=== PATIENT | male | born 1975 | race Caucasian/White ===

== ENCOUNTER → 2018-02-10 | Outpatient (CLI) | payer BC ==
--- NOTE | 2018-02-10 13:35 | SFUN ---
SLEEP CENTER FOLLOW UP NOTE DATE OF SERVICE: 02/10/2018 A 42-year-old gentleman had been followed in sleep center for treatment of severe obstructive sleep apnea-hypopnea syndrome. The patient continued to use his CPAP equipment every night for the whole night. No snoring with the machine. No significant excessive daytime sleepiness. [place] Sleepiness Scale is 4. Recently, he developed some problems with the machine. No water humidifier in the morning although he put the amount of water in the chamber to the maximal level. MEDICATIONS: None. I checked patient's CPAP unit. CPAP pressure is 15 cm of water. Usage is 29 out of 30 nights more than 4 hours, average 6 hours 12 minutes. No leak at all. Apnea-hypopnea index reading only 1.9, which is perfect. PHYSICAL EXAMINATION: During physical exam, patient in no distress. VITAL SIGNS: BP 116/71, HR 73, RR 16, weight 294, which is about 9 pounds less than during the previous visit. Height 5 feet 9-1/2 inches. BMI 42.7. Temperature 97.4, oxygen saturation at room air 100%. HEENT: PERRLA, EOMI. Oropharynx extremely low position of soft palate. NECK: Supple, no JVD. Thyroid is not palpable. LUNGS: Clear to percussion and to auscultation. Good air exchange. No wheezing or rhonchi. HEART: S1, S2 regular. No murmurs, gallops, or rubs. ABDOMEN: Obese. EXTREMITIES No clubbing or cyanosis. PATIENT SCHEDULER: Awake, alert, and oriented X3. Cranial nerves 2 to 7 intact. There is no fasciculation or atrophy. noted. No focal deficits observed. IMPRESSION: 1. Severe obstructive sleep apnea-hypopnea syndrome; apnea-hypopnea index 77, on control with CPAP at 15 cm of water. Patient demonstrated 100% compliance with treatment benefitting from treatment. 2. Obesity. 3. History of hyperlipidemia. PLAN: 1. Patient will continue to use CPAP equipment every night for the whole night. 2. I am going to replace CPAP unit. It is 5 years old and there is some problem with heated humidity. 3. Sleep hygiene with regular time in bed for at least 8 hours. 4. No driving if feeling sleepiness. 5. Prescription for all necessary CPAP supplies. Sincerely, Mayur Simental MD, PhD, FAASM Diplomat of [employer] Crew Attendant of [facility] [place] MMKALEB / LUIN: [id number] /
== END | disposition home or self-care (01) ==
LOC: SLEEP 10:57
PROVIDERS: ATTEND Internal Medicine
DX: G47.33 Obstructive sleep apnea (adult) (pediatric) (principal); E66.9 Obesity, unspecified; E78.5 Hyperlipidemia, unspecified; Z68.41 Body mass index [BMI] 40.0-44.9, adult; Z99.89 Dependence on other enabling machines and devices

== ENCOUNTER → 2019-05-05 | Outpatient (CLI) | payer BC ==
--- NOTE | 2019-05-05 17:35 | PN ---
PROGRESS NOTE DATE OF SERVICE: 05/05/2019 43-year-old gentleman followed in the Sleep Center for treatment of obstructive sleep apnea-hypopnea syndrome. Patient continued to use his CPAP equipment every night for the whole night without problems related to mask fitting, pressure, humidification. [place] Sleepiness Scale today is 5. I checked CPAP unit. CPAP pressure is 15 cm of water. Usage is 29/30 nights for more than 4 hours with average usage 6.3 hours. Leak is 1% of the time. Apnea-hypopnea index 0.32, which is totally normal. No any periodic breathing 0%. PHYSICAL EXAM: gentleman without distress. BP 124/73, HR 88, RR 16, height 5 feet 9 inches, weight 305, body mass index 45, temperature 98.3, oxygen saturation at room air 94%. Oropharynx: Low position of soft palate, Mallampati 4. Neck Supple, no JVD. Thyroid is not palpable. LUNGS Clear to percussion and to auscultation. Good air exchange. No wheezing or rhonchi. HEART S1, S2 regular. No murmurs, gallops, or rubs. ABDOMEN: Obese. Soft and nontender. Bowel sounds are present. No organomegaly appreciated. EXTREMITIES No clubbing or cyanosis. GROUP HOME WORKER Awake, alert, and oriented X3. Cranial nerves 2 to 7 intact. There is no fasciculation or atrophy. noted. No focal deficits observed. IMPRESSION: 1. Obstructive sleep apnea-hypopnea syndrome in severe range with apnea-hypopnea index 77. Patient demonstrated great compliance with treatment. Normalization of breathing on CPAP. 2. CPAP unit is old, more than 5 years old. Sometimes has problems. 3. Obesity. 4. History of hyperlipidemia. PLAN: 1. Patient will continue CPAP equipment every night for the whole night. 2. Losing weight. 3. Sleep hygiene with regular time in bed for at least 8 hours. 4. No driving if feeling any sleepiness. 5. Prescription for new CPAP supplies unit. 6. Precautions related to driving. 7. No driving if feeling sleepiness. 8. Decision-making. The patient's unit is old. Needs to be placed. No necessity to change pressure at the present time. Sincerely, Mayur Simental MD, PhD, FAASM Diplomat of [employer] Pump Installer of [facility] [place] MMODL / IJN: [id number] /
== END | disposition home or self-care (01) ==
LOC: SLEEP 14:39
PROVIDERS: ATTEND Internal Medicine
DX: G47.33 Obstructive sleep apnea (adult) (pediatric) (principal); Z99.89 Dependence on other enabling machines and devices; E66.9 Obesity, unspecified; E78.5 Hyperlipidemia, unspecified

== ENCOUNTER → 2019-07-14 | Outpatient (CLI) | payer BC ==
--- NOTE | 2019-07-14 16:02 | PN ---
PROGRESS NOTE DATE OF SERVICE: 07/14/2019 This patient is a 43-year-old gentleman who has been followed in Sleep Center for treatment of obstructive sleep apnea-hypopnea syndrome. Recently the patient received a new CPAP unit and he continues to use CPAP equipment every night for the whole night. No snoring with the machine. [place] Sleepiness Scale today is zero. I checked his CPAP unit. CPAP pressure is 15 cm of water. Usage is 100% of nights for more than 4 hours with average usage 6.1 hours per night. Leak is 20 L/minute, which is borderline. Apnea-hypopnea index is only 0.4, which is absolutely perfect. MEDICATIONS: None. PHYSICAL EXAMINATION: GENERAL: A pleasant patient in no distress. VITAL SIGNS: BP 127/78, HR 89, RR 16. Weight 307.8. Temperature 98.1, oxygen saturation at room air 95%. HEENT: PERRLA, EOMI. Evaluation of oropharynx showed tongue protrudes midline. Extremely low position of soft palate. Mallampati IV. NECK: Supple. No JVD. Thyroid is not palpable. LUNGS: Clear to percussion and to auscultation. Good air exchange. No wheezing or rhonchi. HEART: S1, S2 regular. No murmurs, gallops or rubs. ABDOMEN: Obese. EXTREMITIES: No clubbing or cyanosis. NETSUITE CONSULTANT: Awake, alert, and oriented X3. Cranial nerves 2 to 7 intact. There is no fasciculation or atrophy. noted. No focal deficits observed. IMPRESSION: 1. Obstructive sleep apnea-hypopnea syndrome, in severe range. Apnea-hypopnea index 77, under full control with CPAP at a pressure of 15 cm of water. Patient has demonstrated great compliance with treatment, benefitting from treatment. 2. Obesity. 3. History of hyperlipidemia. PLAN: 1. Patient will continue to use CPAP equipment every night for the whole night. 2. Losing weight. 3. I will maintain all necessary prescriptions for CPAP supplies, including mask, tube, filters. 4. Diet with low level of cholesterol. 5. No driving if feeling any sleepiness. 6. Follow-up visit in one year, or earlier if patient has any problems. 7. I will also teach the patient how to use his new CPAP unit, including adjustments of humidity and RAMP time. Sincerely, Mayur Simental MD, PhD, FAASM Diplomat of [employer] Kit Planner of [facility] [place] MMKALEB / LUIN: [id number] /
== END ==
LOC: SLEEP 14:52
PROVIDERS: ATTEND Internal Medicine
DX: G47.33 Obstructive sleep apnea (adult) (pediatric) (principal); E66.9 Obesity, unspecified; E78.5 Hyperlipidemia, unspecified; Z99.89 Dependence on other enabling machines and devices

== ENCOUNTER → 2021-10-10 | Outpatient (CLI) | payer BC ==
--- NOTE | 2021-10-10 16:14 | SFUN ---
SLEEP CENTER FOLLOW UP NOTE DATE OF SERVICE: 10/10/2021 INTERVAL HISTORY: A 46-year-old gentleman has been followed in Sleep Center for treatment of obstructive sleep apnea-hypopnea syndrome. I did not see patient since July 2019. Because of the COVID situation, patient was not able to come. Patient continued to use his CPAP equipment every night. Presently, he has some problem to get his supplies for the CPAP unit. [place] Sleepiness Scale is 3, which is normal. I checked CPAP unit. CPAP pressure is 15 cm of water. Usage is 30/30 nights. Average 7.1 hours per night. Leak is 13 L/minute, which is acceptable range. Apnea-hypopnea index is 0.5 which is totally normal. The patient is using a cleaning system for the CPAP unit. I discussed extensively with him the issues related to cleaning; necessity to keep chamber dry during the day and put distilled water in the evening. MEDICATIONS: None. PHYSICAL EXAMINATION: GENERAL: Patient in no distress. BP 157/76, HR 95, RR 16, height 5 feet 9 inches, weight 281.8, body mass index 41.4. Patient lost 26 pounds since previous visit. Temperature 97.2, oxygen saturation at room air 95%. Extremely low position of soft palate, Mallampati 4. NECK: Supple, no JVD. Thyroid is not palpable. LUNGS: Clear to percussion and to auscultation. Good air exchange. No wheezing or rhonchi. HEART: S1, S2 regular. No murmurs, gallops, or rubs. ABDOMEN: Obese. Soft and nontender. Bowel sounds are present. No organomegaly appreciated. EXTREMITIES: No clubbing or cyanosis. DOUGH CATCHER: Awake, alert, and oriented X3. Cranial nerves 2 to 7 intact. There is no fasciculation or atrophy. noted. No focal deficits observed. ABDOMEN: Obese. IMPRESSION: 1. Extremely severe obstructive sleep apnea-hypopnea syndrome apnea-hypopnea index 77. The patient demonstrated a practically 100% compliance with treatment benefitting from treatment, normal respiration on CPAP. 2. Obesity, BMI 41.4. 3. Hypertension in the office. 4. Hyperlipidemia. PLAN: 1. Prescription to replace CPAP mask. The patient is using full face mask immediately. 2. Preferably not using a cleaning system especially for the machine. He can continue to use it for the mask and tube. 3. Patient will continue to use PAP equipment every night for the whole night. 4. Sleep hygiene with regular time in bed for at least 7-1/2 to 8 hours. 5. Precautions related to driving. No driving if feeling sleepiness. 6. I will maintain all necessary prescription for PAP supplies including mask, tube, filters. 7. Watching weight. 8. Follow-up visit in 6 months or earlier if patient has any problems. 9. Low-sodium diet. 10.Monitoring blood pressure with primary care physician. Sincerely, Mayur Simental MD, PhD, FAASM Diplomat of [employer] Sleep Medicine Board of [employer] Medicine Assisted Living Manager of [facility] [place] MMODL / IJN: [id number] /
== END | disposition home or self-care (01) ==
LOC: SLEEP 14:44
PROVIDERS: ATTEND Internal Medicine
DX: G47.33 Obstructive sleep apnea (adult) (pediatric) (principal); E66.9 Obesity, unspecified; Z68.41 Body mass index [BMI] 40.0-44.9, adult; E78.5 Hyperlipidemia, unspecified

== ENCOUNTER → 2023-10-15 | Outpatient (CLI) | payer BC ==
[2023-10-15 16:26] VITALS: BP 130/83; PULSE 95; RESP 16; TEMP 98.3
--- NOTE | 2023-10-15 17:05 | P.PN ---
Subjective DATE: 10/15/2023 FOLLOW UP VISIT. Patient with obstructive sleep apnea hypopnea syndrome return to sleep center for follow-up visit. Information from previous visit have been reviewed. Patient is using PAP equipment every night for the whole night, getting PAP supplies in time. The patient does not have significant problems with the mask, PAP unit and humidification. [place] sleepiness scale is 4. I checked information from PAP unit. PAP unit pressure 15 cm H2O. Usage is 100% for more then 4 hours, average 7.5 hours per night. Leak is 4 l/m, which is in acceptable range. Apnea Hypopnea Index is 0.2, which is normal. MEDICATIONS: None at the present time During physical exam: GENERAL: A pleasant patient without any distress. VITAL SIGNS: BP 130/83, HR 95, RR 16, weight 261, temperature 98.3, oxygen saturation at room air 98% . HEENT: PERRLA, EOMI.low position of soft palate, Mallapati 4 . NECK: Supple. No JVD. LUNGS: Clear to percussion and to auscultation. Good air exchange. No wheezing or rhonchi. HEART: S1, S2 regular. ABDOMEN: Soft and nontender.[] EXTREMITIES: No clubbing or cyanosis. SECURITY ORDERLY: Awake, alert, and oriented x3. No focal deficit. Impressions: 1. Obstructive sleep apnea-hypopnea syndrome. Patient demonstrated great compliance with treatment, benefiting from treatment. 2. Obesity, patient lost 7 pounds comparing with previous visit, presently BMI 37.1. 3. History of hyperlipidemia. Plan: 1. Continue using PAP equipment every night for the whole night. 2. To change air filter at least 1-2 times per month. 3. PAP unit should stay lower then position of the head. 4. Advised patient to remove all remaining water from humidifier canister daily and make it dry after each usage. Refill canister with fresh distilled water before each usage. 5. Sleep hygiene with regular time in bed for at least 8 hours. 6. Precautions related to driving. No driving if feel any sleepiness. 7. I will maintain prescription for PAP supplies including mask, tube, filters. 8. Follow up visit in 6 months or earlier if patient has any problems. 9. Watching and continue losing weight. Thank you very much for allowing me to participate in the management of your patient. Mayur Simental MD, PhD, FAASM. Diplomat of [employer], Sleep Medicine Board by [employer] Medicine Frame Coverer of [facility] [place] Objective - Vital Signs Vital signs: Vital Signs Temp 98.3 F 10/15/23 16:22 Pulse 95 10/15/23 16:22 Resp 16 10/15/23 16:22 BP 130/83 10/15/23 16:22 Pulse Ox 98 10/15/23 16:22 FiO2
== END ==
LOC: 3 N SLEEP 16:14
PROVIDERS: ATTEND Internal Medicine
DX: G47.33 Obstructive sleep apnea (adult) (pediatric) (principal); E66.9 Obesity, unspecified; E78.5 Hyperlipidemia, unspecified; Z99.89 Dependence on other enabling machines and devices; Z68.37 Body mass index [BMI] 37.0-37.9, adult
CPT/HCPCS: 99212

== ENCOUNTER → 2024-05-26 | Outpatient (CLI) | payer BC ==
[2024-05-26 16:50] VITALS: BP 138/84; PULSE 86; RESP 16; TEMP 98.3
--- NOTE | 2024-05-26 17:25 | P.PROGSL ---
Subjective DATE: 05/26/2024 FOLLOW UP VISIT. Patient with obstructive sleep apnea hypopnea syndrome return to sleep center for follow-up visit. Information from previous visit have been reviewed. Patient is using PAP equipment every night for the whole night, getting PAP supplies in time. The patient does not have significant problems with the mask, PAP unit and humidification. [place] sleepiness scale is 4, which is normal. I checked information from PAP unit. PAP unit pressure 15 cm H2O. Usage is 100% for more then 4 hours, average 6.8 hours per night. Leak is 12 l/m, which is in acceptable range. Apnea Hypopnea Index is 0.1, which is normal. MEDICATIONS have been reviewed, please see below. During physical exam: GENERAL: A pleasant patient without any distress. VITAL SIGNS: Please see below, weight is 257.8 lbs. HEENT: PERRLA, EOMI.low position of soft palate, Mallapati 4 . NECK: Supple. No JVD. LUNGS: Clear to percussion and to auscultation. Good air exchange. No wheezing or rhonchi. HEART: S1, S2 regular. ABDOMEN: Soft and nontender. Obese EXTREMITIES: No clubbing or cyanosis. DATA SUPPORT SPECIALIST: Awake, alert, and oriented x3. No focal deficit. Impressions: 1. Obstructive sleep apnea-hypopnea syndrome. Patient demonstrated great compliance with treatment, benefiting from treatment. 2. Obesity, BMI 38.2, patient lost 4 pounds comparing with previous visit. 3. History of hyperlipidemia. Plan: 1. Continue using PAP equipment every night for the whole night. 2. Sleep hygiene with regular time in bed for at least 7.5-8 hours 3. PAP unit should stay lower then position of the head. 4. Advised patient to remove all remaining water from humidifier canister daily and make it dry after each usage. Refill canister with fresh distilled water before each usage. 5. Watching weight. 6. Precautions related to driving. No driving if feel any sleepiness. 7. I will maintain prescription for PAP supplies including mask, tube, filters. 8. Follow up visit in 8 months or earlier if patient has any problems. Thank you very much for allowing me to participate in the management of your patient. Mayur Simental MD, PhD, FAASM. Diplomat of [place] [employer] Medicine, Sleep Medicine Board by [employer] Lease Operator of [facility] [place] Objective - Vital Signs Vital Signs: Vital Signs Temp 98.3 F 05/26/24 16:49 Pulse 86 05/26/24 16:49 Resp 16 05/26/24 16:49 BP 138/84 05/26/24 16:49 Pulse Ox 95 05/26/24 16:49 FiO2 Intake & Output 05/25/24 05/26/24 05/26/24 18:59 06:59 18:59 Weight 116.8 kg
== END ==
LOC: 3 N SLEEP 16:20
PROVIDERS: ATTEND Internal Medicine
CPT/HCPCS: 99212

== ENCOUNTER → 2025-02-08 | Outpatient (CLI) | payer BC ==
[2025-02-08 17:06] VITALS: BP 124/80; PULSE 101; RESP 12; TEMP 98.7
--- NOTE | 2025-02-08 17:28 | P.PROGSL ---
Subjective DATE: 02/08/2025 FOLLOW UP VISIT. Patient with obstructive sleep apnea hypopnea syndrome return to sleep center for follow-up visit. Information from previous visit have been reviewed. Patient is using PAP equipment every night for the whole night, getting PAP supplies in time. The patient does not have significant problems with the mask, PAP unit and humidification. [place] sleepiness scale is 4, which is normal. I checked information from PAP unit. PAP unit pressure 15 cm H2O. Usage is 100% for more then 4 hours, average 7 hours per night. Leak is 0 l/m, which is in acceptable range. Apnea Hypopnea Index is 0.1, which is normal. MEDICATIONS have been reviewed, please see below. During physical exam: GENERAL: A pleasant patient without any distress. VITAL SIGNS: Please see below, weight is 247 lbs. HEENT: PERRLA, EOMI.low position of soft palate, Mallapati 4 . NECK: Supple. No JVD. LUNGS: Clear to percussion and to auscultation. Good air exchange. No wheezing or rhonchi. HEART: S1, S2 regular. ABDOMEN: Soft and nontender.[] EXTREMITIES: No clubbing or cyanosis. SUPERVISOR CUSTOMER SERVICES: Awake, alert, and oriented x3. No focal deficit. Impressions: 1. Obstructive sleep apnea-hypopnea syndrome. Patient demonstrated great compliance with treatment, benefiting from treatment. 2. Mild obesity BMI 36.4, patient lost 9 pounds comparing with previous visit. 3. History of hyperlipidemia. Plan: 1. Continue using PAP equipment every night for the whole night. 2. Sleep hygiene with regular time in bed for at least 7.5-8 hours 3. PAP unit should stay lower then position of the head. 4. Advised patient to remove all remaining water from humidifier canister daily and make it dry after each usage. Refill canister with fresh distilled water before each usage. 5. Watching weight. 6. Precautions related to driving. No driving if feel any sleepiness. 7. I will maintain prescription for PAP supplies including mask, tube, filters. Prescription for travel CPAP unit. 8. Follow up visit in 8 months or earlier if patient has any problems. Thank you very much for allowing me to participate in the management of your patient. Mayur Simental MD, PhD, FAASM. Diplomat of [place] [employer] Medicine, Sleep Medicine Board by [employer] Medicine Drapery Rod Assembler of [facility] [place] Objective - Vital Signs Vital Signs: Vital Signs Temp 98.7 F 02/08/25 17:03 Pulse 101 H 02/08/25 17:03 Resp 12 02/08/25 17:03 BP 124/80 02/08/25 17:03 Pulse Ox 96 02/08/25 17:03 FiO2 Intake & Output 02/07/25 02/08/25 02/08/25 18:59 06:59 18:59 Weight 112.037 kg
== END ==
LOC: 3 N SLEEP 16:53
PROVIDERS: ATTEND Internal Medicine
DX: G47.33 Obstructive sleep apnea (adult) (pediatric) (principal); E66.9 Obesity, unspecified; Z68.36 Body mass index [BMI] 36.0-36.9, adult; Z85.29 Personal history of malignant neoplasm of other respiratory and intrathoracic organs; Z99.89 Dependence on other enabling machines and devices
CPT/HCPCS: 99212